=== PATIENT | male | born 1980 | race Caucasian/White ===

== ENCOUNTER 2019-12-14 10:20 | Outpatient (CLI) | payer MEDICARE, SELFPAY ==
--- NOTE | 2019-12-14 11:45 | USCV_ITS ---
Patricio Montes Age: 39 Gender: M : 1980 Exam Date: 12/14/2019 11:59 Ordering Phys: Audra Sandoval Technologist: Marti Solomon Exam Location: [facility] Indication: pain, swelling RLE HISTORY: history injury to right calf/ankle area with pain and swelling PROCEDURES: On the right side, the common femoral, superficial femoral, profunda femoral, popliteal, posterior tibial, greater saphenous veins and the peroneal trunk were identified and interrogated in the standard fashion. These veins were found to be easily compressible with spontaneous blood flow. FINDINGS: No DVT or superficial thrombus seen in RLE Increased areas of echo lucencies were noted in the subcutaneous tissue CONCLUSIONS No evidence of venous thrombosis either in the superficial or deep veins on the right side. Some features of fluid retention/edema in the right leg. Dr Shekhar Chou MD [facility] (Electronically Signed) Final Date: 14 December 2019 19:50 S
== END 2019-12-14 10:21 | disposition home or self-care (01) ==
LOC: RAD 10:33
PROVIDERS: PCP Family Medicine; Visit Provider Nurse Practitioner Family
DX: M79.89 Other specified soft tissue disorders (principal); M79.604 Pain in right leg
CPT/HCPCS: 93971

== ENCOUNTER 2020-01-10 11:37 | Outpatient (RCR) | payer MEDICARE, SELFPAY | END 2020-01-28 23:59 | disposition home or self-care (01) | LOC: SPT 11:37 | PROVIDERS: PCP Family Medicine; Referring Provider Orthopaedic Surgery; Visit Provider Orthopaedic Surgery | DX: S86.811D Strain of other muscle(s) and tendon(s) at lower leg level, right leg, subsequent encounter (principal); X58.XXXD Exposure to other specified factors, subsequent encounter | CPT/HCPCS: 97110; 97140; 97162 ==

== ENCOUNTER 2020-05-16 10:32 | Outpatient (RCR) | payer MEDICARE, SELFPAY | END 2020-05-28 23:59 | disposition home or self-care (01) | LOC: SPT 10:32 | PROVIDERS: PCP Family Medicine; Referring Provider Family Medicine; Visit Provider Family Medicine | DX: M79.662 Pain in left lower leg (principal) | CPT/HCPCS: 97110; 97161 ==

== ENCOUNTER 2020-06-02 06:00 | Outpatient (RCR) | payer MEDICARE, SELFPAY | END 2020-06-27 23:59 | disposition home or self-care (01) | LOC: SPT 06:00 | PROVIDERS: PCP Family Medicine; Referring Provider Family Medicine; Visit Provider Family Medicine | DX: M79.662 Pain in left lower leg (principal) | CPT/HCPCS: 97110 ==

== ENCOUNTER 2020-11-03 12:31 | Emergency (ER) | payer MEDICARE, SELFPAY ==
[2020-11-03 13:20] VITALS: BP 164/103; PULSE 68; RESP 18; TEMP 36.3; O2SAT 99; BMI 46.2
--- NOTE | 2020-11-03 15:32 | XRR_ITS ---
PROCEDURE INFORMATION: Exam: XR Chest Exam date and time: 11/03/2020 3:32 PM Age: 40 years old Clinical indication: Cough with hemorrhage; Additional info: Coughing w/ trace blood TECHNIQUE: Imaging protocol: XR of the chest. Views: 1 view. COMPARISON: [facility] Chest 2 views 07/04/2018 11:53 AM FINDINGS: Lungs: Faint interstitial opacities are detected in the lingula, which are nonspecific. The lungs are otherwise clear. Right upper lobe azygos fissure is again noted. Pleural spaces: Unremarkable. No pleural effusion. No pneumothorax. Heart/Mediastinum: Unremarkable. No cardiomegaly. Bones/joints: Unremarkable. XR/XR chest 1V portable [id number] IMPRESSION: Mild lingular interstitial opacities may be related to chronic changes or possibly mild atypical/viral infection.
[2020-11-03 17:10] VITALS: BP 170/103; PULSE 84; RESP 18; O2SAT 98
--- NOTE | 2020-11-03 17:14 | ED_ITS ---
Documented by User: Eliel Min DO 11/06/20 07:21 HPI - General Adult General: Chief complaint: General Medical Stated complaint: COUGHING UP TRACE AMOUNTS OF BLOOD Time Seen by Provider: 11/03/20 16:51 History of Present Illness: HPI narrative: 40-year-old male comes in complaining of trace hemoptysis that began earlier today with slight cough. Patient has had several bronchial-like infections earlier this year there were recurrent and he was started on Symbicort that seems to help. No large amounts hemoptysis no fever sweats chills no diarrhea or anosmia. Patient did state he tested positive for Covid last year. Onset (ago): hour(s) Severity: mild Relieving factors: none Exacerbating factors: none Associated symptoms: Reports cough; Deny chest pain, confusion, diaphoresis, decreased appetite, dyspnea, fevers/chills, headache(s), malaise, nausea, rash, palpitations, seizures, short of breath, syncope, vomiting or weakness Treatments prior to arrival: none Review of Systems Const: Denies: malaise or diaphoresis ENMT: Denies: throat pain, ear or mastoid pain, nasal discharge or nasal congestion Card: Denies: chest pain, palpitations or syncope Resp: Denies: dyspnea GI: Denies: nausea or vomiting : Denies: flank pain, dysuria, urinary frequency or urinary urgency Skin/Breast: Denies: rash Neuro: Denies: headache(s) or confusion PFS ED PFSH: Family History Mother Hyperlipidemia Father Diabetes Social History Smoking and tobacco status: former smoker Alcohol intake: never Physical Exam Const: COMMON NORMALS: no acute distress GENERAL APPEARANCE: cooperative and comfortable ORIENTATION/CONSCIOUSNESS: Yes awake, Yes oriented to person, Yes oriented to place and Yes oriented to time HENMT: COMMON NORMALS: normocephalic, atraumatic and hearing grossly normal bilaterally HEAD & SCALP: normocephalic and atraumatic Neck/C-Spine: COMMON NORMALS: no JVD Lymph: LYMPHATIC: no lymphadenopathy noted and no lymphedema noted Resp: COMMON NORMALS: normal respiratory effort, No retractions, No use of accessory muscles and clear to auscultation bilaterally AUSCULTATION: clear to auscultation bilaterally Cardio: COMMON NORMALS: no JVD, regular rate, regular rhythm and No murmurs present (Cardio) RATE: regular rate RHYTHM: regular rhythm GI: COMMON NORMALS: Soft to palpation and No hepatosplenomegaly present AUSCULTATION: Yes normoactive bowel sounds PALPATION: Yes Soft to palpation, No Tenderness to palpation present (GI), No Guarding due to palpation present (GI) and Yes No hepatosplenomegaly present Extremity: COMMON NORMALS: normal to inspection, capillary refill normal, no clubbing, cyanosis or edema, no calf tenderness and no pedal edema Neuro: SENSORIUM/ORIENTATION: Yes oriented to person, Yes oriented to place and Yes oriented to time Skin: COMMON NORMALS: no rashes or lesions noted GENERAL SKIN EXAM: no rashes or lesions noted Course Vital Signs: Vital signs: Vital Signs Temperature 97.4 F L 11/03/20 13:20 Pulse Rate 90 11/03/20 18:31 Respiratory Rate 16 11/03/20 18:31 Blood Pressure 104/61 11/03/20 18:31 Pulse Oximetry 100 11/03/20 18:31 MDM - General Adult Lab Data: Labs: Lab Results 11/03/20 11/03/20 11/03/20 Range/Units 17:10 17:10 17:10 WBC 9.8 (4.0-10.0) 10^3/ uL RBC 4.94 (4.1-5.3) 10^6/u L Hgb 13.4 (11.7-16.6) g/dL Hct 42.1 (42.0-52.0) % MCV 85.2 (80-94) fl MCH 27.1 L (28.0-34.0) pg MCHC 31.8 (30.0-36.0) g/dL RDW 14.2 (12.1-15.1) % Plt Count 194 (130-400) 10^3/c mm MPV 11.3 H (7.4-10.4) fL Neut % (Auto) 67.3 % Lymph % (Auto) 21.8 % Zavala % (Auto) 8.6 % Eos % (Auto) 1.3 % Baso % (Auto) 0.7 % Neut # (Auto) 6.58 (1.8-7.7) 10^3/u L Lymph # (Auto) 2.1 (0.8-4.8) 10^3/u L Zavala # (Auto) 0.8 (0.2-0.9) 10^3/u L Eos # (Auto) 0.1 (0.0-0.8) 10^3/u L Baso # (Auto) 0.1 (0.0-0.1) 10^3/u L Nucleated RBC % (a uto) 0 % Nucleated RBCs # 0.0 /100WBC D-Dimer 0.77 H (0-0.59) ug/mIFE U Sodium 137 (136-145) mmol/L Potassium 4.0 (3.5-5.1) mmol/L Chloride 98 (98-107) mmol/L Carbon Dioxide 29 (22-29) mmol/L Anion Gap 14.0 (5-19) BUN 9 (6-20) mg/dL Creatinine 0.7 (0.7-1.2) mg/dL GFR Calculation 125.5 (90-130) mL/min Glucose 122 H (65-115) mg/dL Calculated Osmolal ity 284 L (285-295) mOsm/k g Calcium 9.2 (8.5-10.5) mg/dL Total Bilirubin 0.5 (0.15-1.2) mg/dL AST 51 H (0-40) U/L ALT 61 H (0-41) U/L Alkaline Phosphata se 60 (40-130) IU/L Total Protein 6.7 (6.6-8.7) g/dL Albumin 4.1 (3.5-5.2) g/dL Globulin 2.6 (1.3-4.6) g/dL Lipase 23 (13-60) U/L Discharge Plan Discharge Patient Disposition: Home Clinical Impression: Bronchitis, Hemoptysis Condition: Stable Prescriptions: New doxycycline hyclate 100 mg capsule 100 mg PO BID 10 Days Qty: 20 RF: 0 Medrol (Erick) 4 mg tablets,dose pack See Rx Instructions .ROUTE .COMPLEX Qty: 21 RF: 0 albuterol sulfate 90 mcg/actuation HFA aerosol inhaler 2 inh INHALATION Q4H PRN (Reason: bronchospasm) Qty: 18 RF: 0 No Action lisinopril-hydrochlorothiazide 20-12.5 mg tablet 2 tab PO QAM RF: 0 allopurinol 300 mg tablet 300 mg PO BEDTIME RF: 0 metformin 1,000 mg tablet 1,000 mg PO BID RF: 0 montelukast [Singulair] 10 mg tablet 10 mg PO QAM RF: 0 budesonide-formoterol [Symbicort] 160-4.5 mcg/actuation HFA aerosol inhaler 2 puff inhalation BID RF: 0 ibuprofen 600 mg tablet 600 mg PO BID PRN (Reason: Pain) RF: 0 pregabalin [Lyrica] 75 mg capsule 75 mg PO BID RF: 0 omeprazole 40 mg capsule,delayed release(DR/EC) 40 mg PO DAILY RF: 0 Aspir-81 81 mg Tablet,Delayed Release (Dr/Ec) 81 mg PO BEDTIME RF: 0 baclofen 20 mg tablet 10 - 20 mg PO BEDTIME PRN (Reason: Spasms) RF: 0 propranolol 40 mg tablet 40 mg PO BID RF: 0 oxymorphone 10 mg tablet 10 mg PO QID PRN (Reason: Pain) RF: 0 Discharge Orders: Discharge ED (Routine); Ordered 11/03/20 Ordered By: Eliel Min Referrals: Tong Colin MD [Primary Care Provider] - Discharge Diet: Advance as tolerated Discharge Activity: Resume usual activity Patient Instructions: Chronic Bronchitis (ED), Opioid Safety Coding Level of Care Code ED Division Leader for Chg Fwd Exam Comprehensive Documented by User: Catrachito Aguilar MD 11/03/20 20:34 HPI - General Adult General: Chief complaint: General Medical Stated complaint: COUGHING UP TRACE AMOUNTS OF BLOOD Time Seen by Provider: 11/03/20 16:51 PFSH ED PFSH: Family History Mother Hyperlipidemia Father Diabetes Social History (Reviewed 09/06/21 @ 17:15 by JUANA De La Torre Smoking and tobacco status: former smoker Alcohol intake: never Course Vital Signs: Vital signs: Vital Signs Temperature 97.4 F L 11/03/20 13:20 Pulse Rate 90 11/03/20 18:31 Respiratory Rate 16 11/03/20 18:31 Blood Pressure 104/61 11/03/20 18:31 Pulse Oximetry 100 11/03/20 18:31 MDM - General Adult MDM Narrative: Medical decision making narrative: Patient presents here with hemoptysis likely bronchitis. His CT showed some bilateral lung opacities could be a pneumonitis will discharge on doxycycline. He is to follow-up his PCP in 2 to 4 days and return if worsening. Lab Data: Labs: Lab Results 11/03/20 11/03/20 11/03/20 Range/Units 17:10 17:10 17:10 WBC 9.8 (4.0-10.0) 10^3/ uL RBC 4.94 (4.1-5.3) 10^6/u L Hgb 13.4 (11.7-16.6) g/dL Hct 42.1 (42.0-52.0) % MCV 85.2 (80-94) fl MCH 27.1 L (28.0-34.0) pg MCHC 31.8 (30.0-36.0) g/dL RDW 14.2 (12.1-15.1) % Plt Count 194 (130-400) 10^3/c mm MPV 11.3 H (7.4-10.4) fL Neut % (Auto) 67.3 % Lymph % (Auto) 21.8 % Zavala % (Auto) 8.6 % Eos % (Auto) 1.3 % Baso % (Auto) 0.7 % Neut # (Auto) 6.58 (1.8-7.7) 10^3/u L Lymph # (Auto) 2.1 (0.8-4.8) 10^3/u L Zavala # (Auto) 0.8 (0.2-0.9) 10^3/u L Eos # (Auto) 0.1 (0.0-0.8) 10^3/u L Baso # (Auto) 0.1 (0.0-0.1) 10^3/u L Nucleated RBC % (a uto) 0 % Nucleated RBCs # 0.0 /100WBC D-Dimer 0.77 H (0-0.59) ug/mIFE U Sodium 137 (136-145) mmol/L Potassium 4.0 (3.5-5.1) mmol/L Chloride 98 (98-107) mmol/L Carbon Dioxide 29 (22-29) mmol/L Anion Gap 14.0 (5-19) BUN 9 (6-20) mg/dL Creatinine 0.7 (0.7-1.2) mg/dL GFR Calculation 125.5 (90-130) mL/min Glucose 122 H (65-115) mg/dL Calculated Osmolal ity 284 L (285-295) mOsm/k g Calcium 9.2 (8.5-10.5) mg/dL Total Bilirubin 0.5 (0.15-1.2) mg/dL AST 51 H (0-40) U/L ALT 61 H (0-41) U/L Alkaline Phosphata se 60 (40-130) IU/L Total Protein 6.7 (6.6-8.7) g/dL Albumin 4.1 (3.5-5.2) g/dL Globulin 2.6 (1.3-4.6) g/dL Lipase 23 (13-60) U/L Imaging Data^: CT Chest: Attestation: I personally reviewed and interpreted this imaging study as follows: Radiologist's impression: [address] [place] [address] CT Scan Report Signed Patient: Patricio Montes Unit #: [id number] : 1980 Age/Sex: 40 / M ADM Date: 11/03/20 Loc: ER Room/Bed: Attending Dr: Ordering Provider/Ordering MD: Eliel Min DO Date of Service: 11/03/20 Procedure(s): CT angio chest PE protcl [id number] Accession Number(s): [id number] Report Number: [id number] PROCEDURE INFORMATION: Exam: CTA Chest With Contrast Exam date and time: 11/03/2020 5:46 PM Age: 40 years old Clinical indication: Abnormal findings; Abnormal diagnostic tests; Elevated d-dimer; Cough with hemorrhage; Patient HX: Coughing up blood this am; Additional info: Elevated d dimer TECHNIQUE: Imaging protocol: Computed tomographic angiography of the chest with contrast. 3D rendering (Not supervised by radiologist): MIP and/or 3D reconstructed images were created by the technologist. Radiation optimization: All CT scans at this facility use at least one of these dose optimization techniques: automated exposure control; mA and/or kV adjustment per patient size (includes targeted exams where dose is matched to clinical indication); or iterative reconstruction. Contrast material: [id number]; Contrast volume: 190 ml; Contrast route: INTRAVENOUS (IV); COMPARISON: 09/21/2017 CTA of the chest and 10/28/2017 CT scan of the chest without contrast. RADIATION DOSE METRICS: Total DLP (mGy-cm): 2824.56 FINDINGS: Pulmonary arteries: No pulmonary embolus is seen. Aorta: Unremarkable. No aortic aneurysm. No aortic dissection. Lungs: Left upper lobe, inferior lingular, and bibasilar patchy opacities are appreciated, with predominantly ground-glass changes. Right upper lobe azygos fissure is again noted. Pleural spaces: Unremarkable. No pneumothorax. No pleural effusion. Heart: The heart is normal in size. Lymph nodes: Unremarkable. No enlarged lymph nodes. Liver: Mild hepatic steatosis is appreciated. Adrenal glands: A 4.2 cm left adrenal mass is again noted, which is unchanged and likely an adenoma. The right adrenal gland appears normal. Bones/joints: Unremarkable. No acute fracture. Soft tissues: Unremarkable. CT/CT angio chest PE protcl [id number] IMPRESSION: 1. No pulmonary embolus is seen. 2. Bilateral lung opacities may be secondary to pulmonary hemorrhage, pneumonitis or possibly atypical/viral pulmonary infection. COVID-19 related pneumonia is a diagnostic consideration. 3. Stable left adrenal mass, which is likely an adenoma. Radiation Dose CTDIVOL = (mGy): DLP = 2824.56 (mGy-cm) Dictated By: Vitaliy Galarza MD Signed By: Vitaliy Galarza MD Signed Date/Time: 11/03/201844 DD/ 42 Discharge Plan Discharge Patient Disposition: Home Clinical Impression: Bronchitis, Hemoptysis Condition: Stable Prescriptions: New doxycycline hyclate 100 mg capsule 100 mg PO BID 10 Days Qty: 20 RF: 0 Medrol (Erick) 4 mg tablets,dose pack See Rx Instructions .ROUTE .COMPLEX Qty: 21 RF: 0 albuterol sulfate 90 mcg/actuation HFA aerosol inhaler 2 inh INHALATION Q4H PRN (Reason: bronchospasm) Qty: 18 RF: 0 No Action lisinopril-hydrochlorothiazide 20-12.5 mg tablet 2 tab PO QAM RF: 0 allopurinol 300 mg tablet 300 mg PO BEDTIME RF: 0 metformin 1,000 mg tablet 1,000 mg PO BID RF: 0 montelukast [Singulair] 10 mg tablet 10 mg PO QAM RF: 0 budesonide-formoterol [Symbicort] 160-4.5 mcg/actuation HFA aerosol inhaler 2 puff inhalation BID RF: 0 ibuprofen 600 mg tablet 600 mg PO BID PRN (Reason: Pain) RF: 0 pregabalin [Lyrica] 75 mg capsule 75 mg PO BID RF: 0 omeprazole 40 mg capsule,delayed release(DR/EC) 40 mg PO DAILY RF: 0 Aspir-81 81 mg Tablet,Delayed Release (Dr/Ec) 81 mg PO BEDTIME RF: 0 baclofen 20 mg tablet 10 - 20 mg PO BEDTIME PRN (Reason: Spasms) RF: 0 propranolol 40 mg tablet 40 mg PO BID RF: 0 oxymorphone 10 mg tablet 10 mg PO QID PRN (Reason: Pain) RF: 0 Discharge Orders: Discharge ED (Routine); Ordered 11/03/20 Ordered By: Eliel Min Referrals: Tong Colin MD [Primary Care Provider] - Discharge Diet: Advance as tolerated Discharge Activity: Resume usual activity Patient Instructions: Chronic Bronchitis (ED), Opioid Safety Coding Level of Care Code ED Division Leader for Chg Fwd Exam Comprehensive
[2020-11-03 17:21] LABS: Basophils # 0.1 10^3/uL (0.0-0.1); Basophils % 0.7 %; Eosinophils # 0.1 10^3/uL (0.0-0.8); Eosinophils % 1.3 %; Hematocrit 42.1 % (42.0-52.0); Hemoglobin 13.4 g/dL (11.7-16.6); Lymphocytes # 2.1 10^3/uL (0.8-4.8); Lymphocytes % 21.8 %; Mean Corpuscular HGB Conc 31.8 g/dL (30.0-36.0); Mean Corpuscular Hemoglobin 27.1 pg (28.0-34.0); Mean Corpuscular Volume 85.2 fl (80-94); Mean Platelet Volume 11.3 fL (7.4-10.4); Monocytes # 0.8 10^3/uL (0.2-0.9); Monocytes % 8.6 %; Neutrophils # 6.58 10^3/uL (1.8-7.7); Neutrophils % 67.3 %; Nucleated Red Blood Cells % 0 %; Platelet Count 194 10^3/cmm (130-400); Red Blood Count 4.94 10^6/uL (4.1-5.3); Red Cell Distribution Width 14.2 % (12.1-15.1); White Blood Count 9.8 10^3/uL (4.0-10.0)
[2020-11-03 17:43] LABS: D Dimer 0.77 ug/mIFEU (0-0.59)
--- NOTE | 2020-11-03 17:46 | CTR_ITS ---
PROCEDURE INFORMATION: Exam: CTA Chest With Contrast Exam date and time: 11/03/2020 5:46 PM Age: 40 years old Clinical indication: Abnormal findings; Abnormal diagnostic tests; Elevated d-dimer; Cough with hemorrhage; Patient HX: Coughing up blood this am; Additional info: Elevated d dimer TECHNIQUE: Imaging protocol: Computed tomographic angiography of the chest with contrast. 3D rendering (Not supervised by radiologist): MIP and/or 3D reconstructed images were created by the technologist. Radiation optimization: All CT scans at this facility use at least one of these dose optimization techniques: automated exposure control; mA and/or kV adjustment per patient size (includes targeted exams where dose is matched to clinical indication); or iterative reconstruction. Contrast material: [id number]; Contrast volume: 190 ml; Contrast route: INTRAVENOUS (IV); COMPARISON: 09/21/2017 CTA of the chest and 10/28/2017 CT scan of the chest without contrast. RADIATION DOSE METRICS: Total DLP (mGy-cm): 2824.56 FINDINGS: Pulmonary arteries: No pulmonary embolus is seen. Aorta: Unremarkable. No aortic aneurysm. No aortic dissection. Lungs: Left upper lobe, inferior lingular, and bibasilar patchy opacities are appreciated, with predominantly ground-glass changes. Right upper lobe azygos fissure is again noted. Pleural spaces: Unremarkable. No pneumothorax. No pleural effusion. Heart: The heart is normal in size. Lymph nodes: Unremarkable. No enlarged lymph nodes. Liver: Mild hepatic steatosis is appreciated. Adrenal glands: A 4.2 cm left adrenal mass is again noted, which is unchanged and likely an adenoma. The right adrenal gland appears normal. Bones/joints: Unremarkable. No acute fracture. Soft tissues: Unremarkable. CT/CT angio chest PE protcl [id number] IMPRESSION: 1. No pulmonary embolus is seen. 2. Bilateral lung opacities may be secondary to pulmonary hemorrhage, pneumonitis or possibly atypical/viral pulmonary infection. COVID-19 related pneumonia is a diagnostic consideration. 3. Stable left adrenal mass, which is likely an adenoma. Radiation Dose CTDIVOL = (mGy): DLP = 2824.56 (mGy-cm)
[2020-11-03 17:48] LABS: Alanine Aminotransferase 61 U/L (0-41); Albumin Level 4.1 g/dL (3.5-5.2); Alkaline Phosphatase 60 IU/L (40-130); Aspartate Amino Transferase 51 U/L (0-40); Blood Urea Nitrogen 9 mg/dL (6-20); Calcium 9.2 mg/dL (8.5-10.5); Carbon Dioxide 29 mmol/L (22-29); Chloride 98 mmol/L (98-107); Globulin 2.6 g/dL (1.3-4.6); Glomerular Filtration Rate 125.5 mL/min (90-130); Glucose 122 mg/dL (65-115); Lipase 23 U/L (13-60); Osmolality Calculated 284 mOsm/kg (285-295); Sodium 137 mmol/L (136-145); Total Bilirubin 0.5 mg/dL (0.15-1.2); Total Protein 6.7 g/dL (6.6-8.7)
[2020-11-03 18:31] VITALS: BP 104/61; PULSE 90; RESP 16; O2SAT 100
[2020-11-03] MEDS: iohexol 350 mg/mL 100 mL Btl IV ×2 (20:01)
--- NOTE | 2020-11-05 13:56 | DCPLANNER ---
Addendum entered by Amy Beatty 03/19/21 16:36: Patient had a follow up appointment with Dr. Lawson at [facility] - patient did attend appointment. Original Note: manager field had message to schedule a follow up appointment for patient with [facility]. manager field called [facility], spoke with Jelly, gave clinic patients information. A follow up appointment was scheduled for Wednesday, November 25, 2020 at 8:[address] Lawson, pulmonology. manager field called and gave patient the appointment information.
== END 2020-11-03 18:56 | disposition home or self-care (01) ==
PROVIDERS: Physician Assistant; Emergency Provider Family Medicine; PCP Family Medicine
DX: J40 Bronchitis, not specified as acute or chronic (principal); R04.2 Hemoptysis; Z79.82 Long term (current) use of aspirin; Z79.84 Long term (current) use of oral hypoglycemic drugs; Z87.891 Personal history of nicotine dependence
CPT/HCPCS: 71045; 71275; 80053; 83690; 85025; 85378; 87040; 99283; Q9967

== ENCOUNTER 2020-11-25 11:04 | Outpatient (CLI) | payer MEDICARE, SELFPAY ==
[2020-11-25 11:25] LABS: Add Urine Microscopic? NO; Charge for UA Resulting for Rev
[2020-11-25 11:33] LABS: Blood Urine Neg (Negative); Glucose Urine UA Norm (Normal); Ketones Urine Negative (Negative); Protein Urine Neg (Negative); Urine Appearance Clear (CLEAR); Urine Color Yellow (Yellow); pH Urine 5 (5-7)
[2020-11-25 11:34] LABS: Bilirubin Urine Neg (Negative); Leukocyte Esterase Urine Negative (Negative); Nitrate Urine Negative (Negative); Urobilinogen Urine Norm (Negative)
[2020-11-25 12:09] LABS: Urine Protein Random 30 mg/dL
[2020-11-25 12:13] LABS: Alanine Aminotransferase 59 U/L (0-41); Albumin Level 4.3 g/dL (3.5-5.2); Alkaline Phosphatase 61 IU/L (40-130); Anion Gap 14.5 (5-19); Aspartate Amino Transferase 43 U/L (0-40); Blood Urea Nitrogen 16 mg/dL (6-20); C Reactive Protein 6.4 mg/L (0.0-4.9); Calcium 9.8 mg/dL (8.5-10.5); Carbon Dioxide 28 mmol/L (22-29); Chloride 96 mmol/L (98-107); Globulin 3.1 g/dL (1.3-4.6); Glomerular Filtration Rate 107.6 mL/min (90-130); Glucose 146 mg/dL (65-115); NT Pro B Type Natriuretic Pept 34 pg/mL (0-125); Osmolality Calculated 282 mOsm/kg (285-295); Potassium 4.5 mmol/L (3.5-5.1); Sodium 134 mmol/L (136-145); Total Bilirubin 0.4 mg/dL (0.15-1.2); Total Protein 7.4 g/dL (6.6-8.7)
[2020-11-26 13:56] LABS: Erythrocyte Sedimentation Rate 6 mm/hr (0-10)
== END 2020-11-25 11:05 | disposition home or self-care (01) ==
PROVIDERS: PCP Family Medicine; Visit Provider Internal Medicine Pulmonary Disease
DX: R04.2 Hemoptysis (principal); R22.43 Localized swelling, mass and lump, lower limb, bilateral
CPT/HCPCS: 36415; 80053; 81003; 83880; 84156; 85651; 86140

== ENCOUNTER 2021-08-27 01:15 | Emergency (ER) | payer MEDICARE, SELFPAY ==
--- NOTE | 2021-08-27 01:20 | XRR_ITS ---
PROCEDURE INFORMATION: Exam: XR Chest Exam date and time: 08/27/2021 1:51 AM Age: 41 years old Clinical indication: Cough TECHNIQUE: Imaging protocol: Radiologic exam of the chest. Views: 1 view. COMPARISON: CR XR chest 1V portable [id number] 11/03/2020 3:57 PM FINDINGS: Lungs: Symmetric lung volumes which are similar to prior imaging. Mild reticular changes of pulmonary interstitium. Suspect hazy pulmonary opacities in the peripheral lower lungs bilaterally. Pleural spaces: Unremarkable. No pleural effusion. No pneumothorax. Heart/Mediastinum: Unremarkable. No cardiomegaly. Bones/joints: Unremarkable. XR/XR chest 1V portable [id number] IMPRESSION: Possibly patchy pneumonitis or atypical pneumonia changes in the lower lungs bilaterally.
[2021-08-27 01:25] VITALS: BP 213/119; PULSE 101; RESP 22; TEMP 36.6; O2SAT 94
--- NOTE | 2021-08-27 01:37 | W.ED.SOB ---
HPI - SOB/Dyspnea General: Chief Complaint: Shortness of Breath/Dyspnea Stated Complaint: cough/issues breathing Time Seen by Provider: 08/27/21 01:20 Source: patient Mode of arrival: ambulatory Limitations: no limitations History of Present Illness: HPI Narrative: 41-year-old male states that over the last 5 to 6 days been having cough congestion with some shortness of breath. He is had some body aches he denies any fever he states his son has had similar symptoms. Denies any vomiting or diarrhea denies any chest pain. Associated symptoms: Deny abdominal pain, chest pain, fever(s), nausea or vomiting Review of Systems Const: Denies: fever(s), chills, body aches or change in appetite Eyes: Denies: blurry vision or eye discomfort ENMT: Denies: throat pain or dental pain Card: Denies: chest pain Resp: Reports: dyspnea and non-productive cough GI: Denies: abdominal pain, nausea, vomiting or diarrhea : Denies: dysuria Musc: Denies: neck pain or back pain Skin/Breast: Denies: rash Neuro: Denies: headache(s) Psych: Denies: depression Jose A/Lymph: Denies: easy bruising All/Imm: Denies: urticaria PFSH ED PFSH: Family History Mother Hyperlipidemia Father Diabetes Social History Smoking and tobacco status: former smoker Quit status (tobacco): has quit using tobacco Year quit tobacco: 2017 Former quit date comment: 1ppd x 5 years Alcohol intake: never Physical Exam Const: COMMON NORMALS: no acute distress, patient oriented x3 and healthy appearing HENMT: COMMON NORMALS: normocephalic and atraumatic HEAD & SCALP: normocephalic and atraumatic Eye: COMMON NORMALS: Equal, round and reactive pupils present and EOMs intact bilaterally PUPIL: Yes Equal, round and reactive pupils present Neck/C-Spine: COMMON NORMALS: full ROM and supple Chest: COMMONS NORMALS: normal inspection of the chest and normal palpation of entire chest wall Resp: COMMON NORMALS: normal respiratory effort, No retractions, No use of accessory muscles and clear to auscultation bilaterally AUSCULTATION: clear to auscultation bilaterally Cardio: COMMON NORMALS: regular rate, regular rhythm and No murmurs present (Cardio) RATE: regular rate RHYTHM: regular rhythm GI: COMMON NORMALS: Normal to inspection, nondistended, normoactive bowel sounds present, Soft to palpation, non-tender and no masses PALPATION: Yes Soft to palpation Extremity: COMMON NORMALS: normal to inspection and full ROM Neuro: COMMON NORMALS: patient oriented x3, moves all extremities and no focal motor deficits Psych: COMMON NORMALS: mental status grossly normal, Normal thought process present and cooperative THOUGHT PROCESS: Normal thought process present Skin: COMMON NORMALS: no rashes or lesions noted and no wounds GENERAL SKIN EXAM: no rashes or lesions noted Course Vital Signs: Vital signs: Vital Signs Temperature 97.9 F 08/27/21 01:25 Pulse Rate 89 08/27/21 02:47 Respiratory Rate 16 08/27/21 02:47 Blood Pressure 213/119 08/27/21 01:25 Pulse Oximetry 97 08/27/21 02:47 MDM - SOB/Dyspnea Medical Decision Making Patient presents here with cough congestion likely a viral URI he is stable for discharge she is to follow-up PCP and return if worsening. Discharge Plan Discharge Patient Disposition: Home Clinical Impression: Upper respiratory infection Condition: Stable Prescriptions: No Action lisinopril-hydrochlorothiazide 20-12.5 mg tablet 2 tab PO QAM 0RF allopurinol 300 mg tablet 300 mg PO BEDTIME 0RF metformin 1,000 mg tablet 1,000 mg PO BID 0RF montelukast [Singulair] 10 mg tablet 10 mg PO QAM 0RF budesonide-formoterol [Symbicort] 160-4.5 mcg/actuation HFA aerosol inhaler 2 puff inhalation BID 0RF ibuprofen 600 mg tablet 600 mg PO BID PRN (Reason: Pain) 0RF pregabalin [Lyrica] 75 mg capsule 75 mg PO BID 0RF amlodipine 5 mg tablet PO 0RF pioglitazone 30 mg tablet PO 0RF omeprazole 40 mg capsule,delayed release(DR/EC) 40 mg PO DAILY 0RF Aspir-81 81 mg Tablet,Delayed Release (Dr/Ec) 81 mg PO BEDTIME 0RF baclofen 20 mg tablet 10 - 20 mg PO BEDTIME PRN (Reason: Spasms) 0RF propranolol 40 mg tablet 40 mg PO BID 0RF oxymorphone 10 mg tablet 10 mg PO QID PRN (Reason: Pain) 0RF Medrol (Erick) 4 mg tablets,dose pack See Rx Instructions .ROUTE .COMPLEX Qty: 21 0RF Rx Instructions: orally per package directions albuterol sulfate 90 mcg/actuation HFA aerosol inhaler 2 inh INHALATION Q4H PRN (Reason: bronchospasm) Qty: 18 0RF Discharge Orders: Discharge ED (Routine); Ordered 08/27/21 Ordered By: Catrachito Aguilar Referrals: Tong Colin MD [Primary Care Provider] - Discharge Diet: Advance as tolerated Discharge Activity: Resume usual activity Patient Instructions: Urinary Tract Infection in Men (ED), Upper Respiratory Infection (ED) Coding Level of Care Code ED Die Cut Operator for Fitz Fwd Exam Comprehensive
[2021-08-27] MEDS: albuterol 8 gm MDI 2 PUFF INHALATION (02:23)
[2021-08-27 02:47] VITALS: PULSE 89; RESP 16; O2SAT 97
[2021-08-27 03:28] LABS: Adenovirus Not Detected (NOT DETECT); Chlamydia Pneumoniae Not Detected (NOT DETECT); Coronavirus 229E,HKU1,NL63,OC4 Not Detected (NOT DETECT); Human Metapneumovirus Not Detected (NOT DETECT); Human Rhinovirus/Enterovirus Detected (NOT DETECT); Influenza A Not Detected (NOT DETECT); Influenza A H1 Not Detected (NOT DETECT); Influenza A H1-2009 Not Detected (NOT DETECT); Influenza A H3 Not Detected (NOT DETECT); Influenza B Not Detected (NOT DETECT); Mycoplasma Pneumoniae Detected (NOT DETECT); Parainfluenza Virus Type 1 Not Detected (NOT DETECT); Parainfluenza Virus Type 2 Not Detected (NOT DETECT); Parainfluenza Virus Type 3 Not Detected (NOT DETECT); Parainfluenza Virus Type 4 Not Detected (NOT DETECT); Respiratory Syncytial Virus A Not Detected (NOT DETECT); Respiratory Syncytial Virus B Not Detected (NOT DETECT); SARS-COV-2 Not Detected (NOT DETECT)
[2021-08-27 03:30] LABS: Chlamydia Pneumoniae Not Detected (NOT DETECT); Human Metapneumovirus Not Detected (NOT DETECT); Human Rhinovirus/Enterovirus Detected (NOT DETECT); Mycoplasma Pneumoniae Detected (NOT DETECT); Results from Genmark
== END 2021-08-27 03:53 | disposition home or self-care (01) ==
PROVIDERS: Emergency Provider Emergency Medicine; PCP Family Medicine
DX: J06.9 Acute upper respiratory infection, unspecified (principal); Z79.84 Long term (current) use of oral hypoglycemic drugs; Z79.82 Long term (current) use of aspirin; Z87.891 Personal history of nicotine dependence; Z20.822 Contact with and (suspected) exposure to COVID-19
CPT/HCPCS: 71045; 87502; 87635; 87801; 94640; 99283; J3535

== ENCOUNTER → 2022-04-08 15:17 | Outpatient (BNVA) | payer MEDICARE, SELFPAY | PROVIDERS: PCP Family Medicine; Visit Provider Internal Medicine Pulmonary Disease | DX: G47.33 Obstructive sleep apnea (adult) (pediatric) (principal); G47.10 Hypersomnia, unspecified; Z87.891 Personal history of nicotine dependence; Z91.199 Patient's noncompliance with other medical treatment and regimen due to unspecified reason; R63.5 Abnormal weight gain; Z68.43 Body mass index [BMI] 50.0-59.9, adult | CPT/HCPCS: 99214 ==

== ENCOUNTER → 2022-04-28 15:07 | Outpatient (BNVA) | payer MEDICARE, SELFPAY | PROVIDERS: PCP Family Medicine; Visit Provider Orthopaedic Surgery | DX: S83.242A Other tear of medial meniscus, current injury, left knee, initial encounter (principal); X50.9XXA Other and unspecified overexertion or strenuous movements or postures, initial encounter | CPT/HCPCS: 99203 ==

== ENCOUNTER 2022-05-12 13:42 | Outpatient (RCR) | payer MEDICARE, SELFPAY | END 2022-05-12 23:59 | disposition home or self-care (01) | LOC: SPT 13:42 | PROVIDERS: PCP Family Medicine; Visit Provider Orthopaedic Surgery | DX: M25.562 Pain in left knee (principal) | CPT/HCPCS: 97110; 97161 ==

== ENCOUNTER 2022-09-09 09:00 | Outpatient (CLI) | payer MEDICARE, SELFPAY | END 2022-09-09 09:01 | disposition home or self-care (01) | LOC: SLEEP 17:29 | PROVIDERS: PCP Family Medicine; Visit Provider Internal Medicine Pulmonary Disease | DX: G47.10 Hypersomnia, unspecified (principal); G47.33 Obstructive sleep apnea (adult) (pediatric); G47.36 Sleep related hypoventilation in conditions classified elsewhere | CPT/HCPCS: 95811 ==

== ENCOUNTER 2022-09-15 20:16 | Emergency (ER) | payer MEDICARE, SELFPAY ==
[2022-09-15 20:20] VITALS: BMI 50.5
--- NOTE | 2022-09-15 20:22 | ECG_ITS ---
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 Measurements Intervals [place] Rate: 106 P: 38 WA: 177 QRS: 57 QRSD: 92 T: 44 QT: 308 QTc: 409 Interpretive Statements SINUS TACHYCARDIA POSSIBLE LEFT ATRIAL ENLARGEMENT [-0.1mV P-WAVE IN V1/V2] LOW QRS VOLTAGE IN PRECORDIAL LEADS [QRS DEFLECTION < 1.0 mV IN CHEST LEADS] SEPTAL MYOCARDIAL INFARCTION , OF INDETERMINATE AGE [40+ ms Q WAVE IN V1/V2] Compared to ECG 09/03/2017 18:21:29 Low QRS voltage now present Myocardial infarct finding now present Sinus rhythm no longer present Electronically Signed On 09-16-2022 12:29:02 CDT by Ashli Carrasco M.D. [email or web address]
[2022-09-15 20:24] VITALS: BP 128/74; PULSE 111; RESP 16; TEMP 36.5; O2SAT 98
--- NOTE | 2022-09-15 20:59 | XRR_ITS ---
PROCEDURE INFORMATION: Exam: XR Chest Exam date and time: 09/15/2022 9:04 PM Age: 42 years old Clinical indication: Pain; Chest pressure; Additional info: Cp TECHNIQUE: Imaging protocol: Radiologic exam of the chest. Views: 1 view. COMPARISON: CR XR chest 1V portable [id number] 08/27/2021 1:51 AM FINDINGS: Lungs: Unremarkable. No consolidation. Pleural spaces: Unremarkable. No pleural effusion. No pneumothorax. Heart/Mediastinum: Unremarkable. No cardiomegaly. Bones/joints: Unremarkable. XR/XR chest 1V portable [id number] IMPRESSION: No acute findings.
--- NOTE | 2022-09-15 21:11 | ED_ITS ---
HPI - Dizziness General: Chief Complaint: Dizziness Stated Complaint: low bp Time Seen by Provider: 09/15/22 20:48 Source: patient Mode of arrival: ambulatory Limitations: no limitations History of Present Illness: HPI Narrative: 42-year-old male states that 2 separate times days felt lightheaded he states 1 time he stood up quickly other time he was sitting down. 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 Denies any shortness of breath Associated symptoms: Denies chest pain, chills, headache(s), nausea or vomiting Review of Systems Const: Denies: fever(s) or chills ENMT: Denies: throat pain or dental pain Card: Denies: chest pain Resp: Denies: dyspnea GI: Denies: abdominal pain, nausea, vomiting or diarrhea Musc: Denies: neck pain or back pain Skin/Breast: Denies: rash Neuro: Denies: headache(s) PFSH ED PFSH: Family History Mother Hyperlipidemia Father Diabetes Social History Smoking and tobacco status: former smoker Quit status (tobacco): has quit using tobacco Year quit tobacco: 2016 Former quit date comment: 1ppd x 5 years Alcohol intake: never Physical Exam Const: COMMON NORMALS: no acute distress, patient oriented x3 and healthy appearing HENMT: COMMON NORMALS: normocephalic and atraumatic HEAD & SCALP: normocephalic and atraumatic Eye: COMMON NORMALS: conjunctivae normal CONJUNCTIVA: Yes conjunctivae normal Neck/C-Spine: COMMON NORMALS: full ROM and supple Chest: COMMONS NORMALS: normal inspection of the chest and normal palpation of entire chest wall Resp: COMMON NORMALS: normal respiratory effort, No retractions, No use of accessory muscles and clear to auscultation bilaterally AUSCULTATION: clear to auscultation bilaterally Cardio: COMMON NORMALS: regular rate, regular rhythm and No murmurs present (Cardio) RATE: regular rate RHYTHM: regular rhythm GI: COMMON NORMALS: Normal to inspection, nondistended, normoactive bowel sounds present, Soft to palpation, non-tender and no masses PALPATION: Yes Soft to palpation Extremity: COMMON NORMALS: normal to inspection and full ROM Neuro: COMMON NORMALS: patient oriented x3, moves all extremities and no focal motor deficits Psych: COMMON NORMALS: mental status grossly normal, Normal thought process present and cooperative THOUGHT PROCESS: Normal thought process present Skin: COMMON NORMALS: no rashes or lesions noted and no wounds GENERAL SKIN EXAM: no rashes or lesions noted Course Vital Signs: Vital signs: Vital Signs Temperature 97.7 F 09/15/22 20:24 Pulse Rate 111 H 09/15/22 20:24 Respiratory Rate 16 09/15/22 20:24 Blood Pressure 128/74 09/15/22 20:24 Pulse Oximetry 98 09/15/22 20:24 MDM - Dizziness Medical Decision Making Patient presents here with feeling lightheaded he is concerned of hypotension his blood pressure here has been normal blood works normal likely some orthostasis he is feels much improved he is stable for discharge he is to follow-up with PCP and return if worsening Medical Records I reviewed the patient's medical records. Lab Data I reviewed the patient's lab results. 09/15/22 21:15 09/15/22 21:15 Radiology Impressions Chest X-Ray 09/15/22 20:59 IMPRESSION: No acute findings. Laboratory Results WBC 11.9 10^3/uL (4.0-10.0) H 09/15/22 21:15 RBC 5.03 10^6/uL (4.1-5.3) 09/15/22 21:15 Hgb 13.2 g/dL (11.7-16.6) 09/15/22 21:15 Hct 42.1 % (42.0-52.0) 09/15/22 21:15 MCV 83.7 fl (80-94) 09/15/22 21:15 MCH 26.2 pg (28.0-34.0) L 09/15/22 21:15 MCHC 31.4 g/dL (30.0-36.0) 09/15/22 21:15 RDW 15.8 % (12.1-15.1) H 09/15/22 21:15 Plt Count 236 10^3/cmm (130-400) 09/15/22 21:15 MPV 10.6 fL (7.4-10.4) H 09/15/22 21:15 Neut % (Auto) 77.1 % 09/15/22 21:15 Lymph % (Auto) 13.7 % 09/15/22 21:15 [place] % (Auto) 7.4 % 09/15/22 21:15 Eos % (Auto) 1.3 % 09/15/22 21:15 Baso % (Auto) 0.2 % 09/15/22 21:15 Neut # (Auto) 9.15 10^3/uL (1.8-7.7) H 09/15/22 21:15 Lymph # (Auto) 1.6 10^3/uL (0.8-4.8) 09/15/22 21:15 [place] # (Auto) 0.9 10^3/uL (0.2-0.9) 09/15/22 21:15 Eos # (Auto) 0.2 10^3/uL (0.0-0.8) 09/15/22 21:15 Baso # (Auto) 0.0 10^3/uL (0.0-0.1) 09/15/22 21:15 Nucleated RBC % (auto) 0 % 09/15/22 21:15 Nucleated RBCs # 0.0 /100WBC 09/15/22 21:15 Sodium 138 mmol/L (136-145) 09/15/22 21:15 Potassium 4.5 mmol/L (3.5-5.1) 09/15/22 21:15 Chloride 100 mmol/L (98-107) 09/15/22 21:15 Carbon Dioxide 24 mmol/L (22-29) 09/15/22 21:15 Anion Gap 18.5 (5-19) 09/15/22 21:15 BUN 18 mg/dL (6-20) 09/15/22 21:15 Creatinine 1.0 mg/dL (0.7-1.2) 09/15/22 21:15 GFR Calculation 82.3 mL/min (90-130) L 09/15/22 21:15 Glucose 160 mg/dL (65-115) H 09/15/22 21:15 Calculated Osmolality 291 mOsm/kg (285-295) 09/15/22 21:15 Calcium 8.5 mg/dL (8.5-10.5) 09/15/22 21:15 Total Bilirubin 0.4 mg/dL (0.15-1.2) 09/15/22 21:15 AST 20 U/L (0-40) 09/15/22 21:15 ALT 36 U/L (0-41) 09/15/22 21:15 Alkaline Phosphatase 77 U/L (40-130) 09/15/22 21:15 Total Protein 6.7 g/dL (6.6-8.7) 09/15/22 21:15 Albumin 4.2 g/dL (3.5-5.2) 09/15/22 21:15 Globulin 2.5 g/dL (1.3-4.6) 09/15/22 21:15 Discharge Plan Discharge Patient Disposition: Home Clinical Impression: Light headedness Condition: Stable Prescriptions: No Action lisinopril-hydrochlorothiazide 20-12.5 mg tablet 2 tab PO QAM allopurinol 300 mg tablet 300 mg PO BEDTIME metformin 1,000 mg tablet 1,000 mg PO BID montelukast [Singulair] 10 mg tablet 10 mg PO QAM budesonide-formoterol [Symbicort] 160-4.5 mcg/actuation HFA aerosol inhaler 2 puff inhalation BID ibuprofen 600 mg tablet 600 mg PO BID PRN (Reason: Pain) pregabalin [Lyrica] 75 mg capsule 75 mg PO BID amlodipine 5 mg tablet PO pioglitazone 30 mg tablet PO omeprazole 40 mg capsule,delayed release(DR/EC) 40 mg PO DAILY Aspir-81 81 mg Tablet,Delayed Release (Dr/Ec) 81 mg PO BEDTIME baclofen 20 mg tablet 10 - 20 mg PO BEDTIME PRN (Reason: Spasms) propranolol 40 mg tablet 40 mg PO BID oxymorphone 10 mg tablet 10 mg PO QID PRN (Reason: Pain) Medrol (Erick) 4 mg tablets,dose pack See Rx Instructions .ROUTE .COMPLEX Qty: 21 0RF Rx Instructions: orally per package directions albuterol sulfate 90 mcg/actuation HFA aerosol inhaler 2 inh INHALATION Q4H PRN (Reason: bronchospasm) Qty: 18 0RF Discharge Orders: Discharge ED (Routine); Ordered 09/15/22 Ordered By: Catrachito Aguilar Referrals: Tong Colin MD [Primary Care Provider] - 1-3 days Discharge Diet: Advance as tolerated Discharge Activity: Resume usual activity Patient Instructions: Lightheadedness (ED) Coding Level of Care Code ED Clinical Outcomes Manager for [facility]
[2022-09-15 21:24] LABS: Basophils % 0.2 %; Eosinophils # 0.2 10^3/uL (0.0-0.8); Eosinophils % 1.3 %; Hematocrit 42.1 % (42.0-52.0); Hemoglobin 13.2 g/dL (11.7-16.6); Lymphocytes # 1.6 10^3/uL (0.8-4.8); Lymphocytes % 13.7 %; Mean Corpuscular HGB Conc 31.4 g/dL (30.0-36.0); Mean Corpuscular Hemoglobin 26.2 pg (28.0-34.0); Mean Corpuscular Volume 83.7 fl (80-94); Mean Platelet Volume 10.6 fL (7.4-10.4); Monocytes # 0.9 10^3/uL (0.2-0.9); Monocytes % 7.4 %; Neutrophils # 9.15 10^3/uL (1.8-7.7); Neutrophils % 77.1 %; Nucleated Red Blood Cells % 0 %; Platelet Count 236 10^3/cmm (130-400); Red Blood Count 5.03 10^6/uL (4.1-5.3); Red Cell Distribution Width 15.8 % (12.1-15.1); White Blood Count 11.9 10^3/uL (4.0-10.0)
[2022-09-15] MEDS: sodium chloride 0.9% 1,000 ML 999 ML IV (21:35)
[2022-09-15 21:41] LABS: Alanine Aminotransferase 36 U/L (0-41); Albumin Level 4.2 g/dL (3.5-5.2); Alkaline Phosphatase 77 U/L (40-130); Anion Gap 18.5 (5-19); Aspartate Amino Transferase 20 U/L (0-40); Blood Urea Nitrogen 18 mg/dL (6-20); Calcium 8.5 mg/dL (8.5-10.5); Carbon Dioxide 24 mmol/L (22-29); Chloride 100 mmol/L (98-107); Globulin 2.5 g/dL (1.3-4.6); Glomerular Filtration Rate 82.3 mL/min (90-130); Glucose 160 mg/dL (65-115); Osmolality Calculated 291 mOsm/kg (285-295); Potassium 4.5 mmol/L (3.5-5.1); Sodium 138 mmol/L (136-145); Total Bilirubin 0.4 mg/dL (0.15-1.2); Total Protein 6.7 g/dL (6.6-8.7)
[2022-09-15 21:54] VITALS: BP 125/71; PULSE 115; RESP 18; O2SAT 95
== END 2022-09-15 21:57 | disposition home or self-care (01) ==
PROVIDERS: Emergency Provider Emergency Medicine; PCP Family Medicine
DX: R42 Dizziness and giddiness (principal); Z79.82 Long term (current) use of aspirin; Z79.84 Long term (current) use of oral hypoglycemic drugs; Z87.891 Personal history of nicotine dependence
CPT/HCPCS: 36415; 71045; 80053; 85025; 93005; 99285; J7030

== ENCOUNTER → 2022-10-21 14:20 | Outpatient (BNVA) | payer MEDICARE, SELFPAY | PROVIDERS: PCP Family Medicine; Visit Provider Internal Medicine Pulmonary Disease | DX: G47.33 Obstructive sleep apnea (adult) (pediatric) (principal); Z87.891 Personal history of nicotine dependence; Z91.199 Patient's noncompliance with other medical treatment and regimen due to unspecified reason | CPT/HCPCS: 99214 ==

== ENCOUNTER → 2023-02-03 13:11 | Outpatient (BNVA) | payer MEDICARE, SELFPAY | PROVIDERS: PCP Family Medicine; Visit Provider Internal Medicine Pulmonary Disease | DX: G47.33 Obstructive sleep apnea (adult) (pediatric) (principal); R63.5 Abnormal weight gain; Z68.43 Body mass index [BMI] 50.0-59.9, adult; G47.36 Sleep related hypoventilation in conditions classified elsewhere; E11.9 Type 2 diabetes mellitus without complications; Z87.891 Personal history of nicotine dependence; Z91.199 Patient's noncompliance with other medical treatment and regimen due to unspecified reason | CPT/HCPCS: 99214 ==

== ENCOUNTER → 2023-08-04 11:05 | Outpatient (BNVA) | payer MEDICARE, SELFPAY | PROVIDERS: PCP Family Medicine; Visit Provider Internal Medicine Pulmonary Disease | DX: G47.33 Obstructive sleep apnea (adult) (pediatric) (principal); Z87.891 Personal history of nicotine dependence | CPT/HCPCS: 99214 ==

== ENCOUNTER → 2024-04-04 14:58 | Outpatient (BNVA) | payer MEDICARE, SELFPAY | PROVIDERS: PCP Family Medicine; Referring Provider Family Medicine; Visit Provider Nurse Practitioner Family | DX: L91.8 Other hypertrophic disorders of the skin (principal); L83 Acanthosis nigricans; L02.12 Furuncle of neck; L02.02 Furuncle of face; Q83.3 Accessory nipple; D23.72 Other benign neoplasm of skin of left lower limb, including hip; D48.5 Neoplasm of uncertain behavior of skin | CPT/HCPCS: 11102; 99204 ==